=== PATIENT | male | born 1930 | race Caucasian/White ===

== ENCOUNTER → 2017-03-22 | Outpatient (CLI) | payer OTHER ==
[~2017-03-22] MED LIST: ASCO500 PO; ASPI325 PO; ASPI81CH; ATEN25 PO; CLOB.05TC TOP; CLOB.05TO TOP; CLOP75 PO; CRESTOR PO; Crestor20 MG; ELIQUIS5 MG PO; FISH1000 PO; FOLI400 PO; FURO20; FURO20 PO; Flonase 0.05% N16 GM; GABA300 PO; GLUCOSAMINE PO; LEVSOD100 PO; LEVSOD50 PO; LISI10 PO; LOSA25 PO; LOSA50 PO; NAPR500 PO; NITR.4SL SL; OXYACE5T PO; ROSU10TA PO; ROSU5 PO; SAW PALMETTA; SAW PALMETTA PO; SYNTHROID PO; Synthroid75 MCG
== END | disposition home or self-care (01) ==
LOC: LAB SHORT 11:18 → PLD 11:18
DX: D48.5 Neoplasm of uncertain behavior of skin (principal)
CPT/HCPCS: 88305

== ENCOUNTER → 2018-04-04 | Outpatient (CLI) | payer OTHER | END | disposition home or self-care (01) | LOC: LAB SHORT 14:32 → PLD 14:32 | DX: L57.0 Actinic keratosis (principal) | CPT/HCPCS: 88305 ==

== ENCOUNTER → 2018-10-03 | Outpatient (CLI) | payer OTHER | END | disposition home or self-care (01) | LOC: PLD 11:47 → LAB SHORT 11:47 | DX: D48.5 Neoplasm of uncertain behavior of skin (principal) | CPT/HCPCS: 88305 ==

== ENCOUNTER → 2019-09-28 | Outpatient (CLI) | payer OTHER | END | disposition home or self-care (01) | LOC: PLD 15:52 → LAB SHORT 15:52 | DX: D48.5 Neoplasm of uncertain behavior of skin (principal) | CPT/HCPCS: 88305 ==

== ENCOUNTER → 2019-10-17 | Outpatient (CLI) | payer OTHER | END | disposition home or self-care (01) | LOC: LAB SHORT 15:47 → PLD 15:47 | DX: C44.41 Basal cell carcinoma of skin of scalp and neck (principal) | CPT/HCPCS: 88305 ==

== ENCOUNTER 2019-12-07 09:04 | Day surgery (SDC) | payer OTHER ==
[~2019-12-07] VITALS: Ht 162.6 cm; Wt 82.0 kg
[2019-12-07] MEDS ORDERED: BUME1 (11:00)
[2019-12-07] MEDS ORDERED: GABA100 (11:02)
[2019-12-07] MEDS ORDERED: ZYRTEC10 M1 (11:04)
[2019-12-07] MEDS ORDERED: OMEP20ER (11:05)
[2019-12-07] MEDS ORDERED: SPIR25 (11:06)
--- NOTE | 2019-12-07 16:00 | NUR ---
PT AMBULATED IN ROOM. TOLERATED WELL. NO BLEEDING AT LEFT GROIN OR RIGHT REDAL.
--- NOTE | 2019-12-07 16:35 | NUR ---
PATIENT DRESSED FOR DISCHARGE. WRITTEN DISCHARGE INSTRUCTIONS GIVEN WITH VERBAL UNDERSTANDING. IV REMOVED WITH CATHETER INTACT AND 2X2 DRESSING WITH COBAN APPLIED.
--- NOTE | 2019-12-07 16:45 | NUR ---
DISCHARGED HOME VIA WHEEL CHAIR . FRIEND DRIVING.
== END 2019-12-07 16:45 | disposition home or self-care (01) ==
LOC: MHTC 09:04
DX: I70.211 Atherosclerosis of native arteries of extremities with intermittent claudication, right leg (principal); I11.0 Hypertensive heart disease with heart failure; I50.9 Heart failure, unspecified; E78.5 Hyperlipidemia, unspecified; E03.9 Hypothyroidism, unspecified; E66.3 Overweight; Z79.01 Long term (current) use of anticoagulants; Z79.899 Other long term (current) drug therapy; Z79.02 Long term (current) use of antithrombotics/antiplatelets; Z68.31 Body mass index [BMI] 31.0-31.9, adult
CPT/HCPCS: 37228; 75625; 75716; 75774; 85347; 99152; 99153; C1725; C1757; C1760; C1769; C1887; C1894; C9764; J1644; J2250; J3010; J7030; Q9967

== ENCOUNTER 2020-04-14 14:00 | Emergency (ER) | payer OTHER ==
[~2020-04-14] VITALS: Ht 162.6 cm; Wt 81.7 kg
[~2020-04-14 14:00] MED LIST changes: +BUME1; +GABA100; +OMEP20ER; +SPIR25; +ZYRTEC10 M1
[2020-04-14 14:36] LABS: BASOPHILS ABSOLUTE AUTO 0.02 K/mm3 (0.00-0.23); BASOPHILS PERCENT AUTO 0 % (0-2); EOSINOPHILS ABSOLUTE AUTO 0.12 K/mm3 (0.00-0.68); EOSINOPHILS PERCENT AUTO 1 % (0-6); Hematocrit 35.3 % (37.0-53.0); Hemoglobin 11.5 g/dL (13.5-17.5); IMMATURE GRAN ABSOLUTE AUTO 0.05 K/mm3 (0.00-0.10); IMMATURE GRAN PERCENT AUTO 1 % (0-1); LYMPHOCYTES ABSOLUTE AUTO 1.09 K/mm3 (0.84-5.20); LYMPHOCYTES PERCENT AUTO 11 % (21-46); MONOCYTES PERCENT AUTO 7 % (4-13); Mean Corpuscular HGB Conc 32.6 g/dL (31.5-36.5); Mean Corpuscular Volume 92 fL (80-100); Mean Platelet Volume 10.5 fL (9.1-12.4); NEUTROPHILS ABSOLUTE AUTO 7.54 K/mm3 (1.96-9.15); NEUTROPHILS PERCENT AUTO 79 % (41-73); Platelet Count 117 K/mm3 (150-400); RDW Coefficient Variation 13.9 % (11.7-14.2); RDW Standard Deviation 47.3 fL (35.1-46.3); Red Blood Cell Count 3.83 M/mm3 (4.30-5.90); White Blood Cell Count 9.52 K/mm3 (4.00-11.30)
[2020-04-14 15:24] LABS: Alanine Aminotransfer (ALT/SGP 32 U/L (12-78); Albumin, Blood 3.6 g/dL (3.4-5.0); Albumin/Globulin Ratio 1.2 (0.8-1.8); Alk Phos 81 U/L (50-136); Anion Gap 4 mmol/L (6-16); Aspartate Aminotrans (AST/SGOT 31 U/L (12-37); Bilirubin, Total 0.6 mg/dL (0.1-1.0); Blood Urea Nitrogen 18 mg/dL (8-24); Bun/Creatinine Ratio 15.4 (12.0-20.0); CO2, Blood 29 mmol/L (21-32); Calcium, Blood 8.8 mg/dL (8.5-10.1); Chloride, Blood 104 mmol/L (98-108); Creatinine, Blood 1.17 mg/dL (0.60-1.20); Glomerular Filtration Rate >60 (60-); Glucose, Blood 107 mg/dL (70-99); Potassium, Blood 4.1 mmol/L (3.5-5.5); Sodium, Blood 137 mmol/L (136-145); Total Protein, Blood 6.6 g/dL (6.4-8.2); Troponin I <0.015 ng/mL (0.000-0.040)
== END 2020-04-14 16:10 | disposition home or self-care (01) ==
LOC: ER 14:00
PROVIDERS: Physician Assistant
DX: R55 Syncope and collapse (principal); I48.91 Unspecified atrial fibrillation; Z95.1 Presence of aortocoronary bypass graft; Z79.01 Long term (current) use of anticoagulants; Z79.899 Other long term (current) drug therapy
CPT/HCPCS: 36415; 71046; 80053; 84484; 85025; 93005; 93010; 99284-25

== ENCOUNTER 2020-09-26 09:49 | Day surgery (SDC) | payer OTHER ==
[~2020-09-26] VITALS: Ht 162.6 cm; Wt 80.0 kg
[~2020-09-26 09:49] MED LIST changes: -SPIR25; +SPIR25 PO
--- NOTE | 2020-09-26 13:15 | NUR ---
PT UPDATED ON WAIT STATUS. PT RIDE/ FRIEND NOTIFIED OF LATER DEPARTURE. WE WILL CALL DORA VARNER [phone] WHEN PROCEDURE IS FINISHED.
--- NOTE | 2020-09-26 15:47 | NUR ---
ASSUMED CARE OF PATIENT, PATIENT ON MONITOR, AFIB NOTED, S/P DIAGNOSTIC PERIPHERAL ANGIOGRAM. ANGIOSEAL TO THE RFA AT 1520. SITE CLEAN AND DRY, NO HEMATOMA NOTED. VVS. NO PAIN NOTED FROM THE PATIENT.
--- NOTE | 2020-09-26 17:46 | NUR ---
1730 PATIENT ASSISTED TO SITTING POSITION ON THE SIDE OF THE BED AND DINNER TRAY SERVED. CALLED FOR RIDE TO BE HERE AT 1815 TO DISCHARGE PATIENT HOME. VVS.
--- NOTE | 2020-09-26 17:56 | NUR ---
PIV REMOVED AND PRESSURE DRESSING APPLIED. REVIEWED DISCHARGE INSTRUCTIONS WITH THE PATIENT WHILE HE WAS FINISHING HIS MEAL. QUESTIONS ANSWERED AND COPIES GIVEN TO THE PATIENT. PATIENT UP AND DRESSED AFTER RFA SITE CHECKED. DRESSING CDI. NO HEMATOMA AND NO BLEEDIN NOTED.
--- NOTE | 2020-09-26 18:10 | NUR ---
PATIENT DRESSED ADN ALL BELONGINGS GATHERED. TO THE RESTROOM, GAIT STEADY. DISCHARGE HOME VIA WHEELCHAIR AND INSTRUCTIONS, AND MASK TO DORA, FAMILY FRIEND.
== END 2020-09-26 22:43 | disposition home or self-care (01) ==
LOC: MHTC 09:49
DX: I70.213 Atherosclerosis of native arteries of extremities with intermittent claudication, bilateral legs (principal); I11.0 Hypertensive heart disease with heart failure; I50.9 Heart failure, unspecified; I25.10 Atherosclerotic heart disease of native coronary artery without angina pectoris; I48.91 Unspecified atrial fibrillation; E78.5 Hyperlipidemia, unspecified; Z79.01 Long term (current) use of anticoagulants
CPT/HCPCS: 36246; 75716; 75774; 76937; 99152; C1760; C1769; C1887; C1894; J2250; J3010; J7030; J7050; Q9967

== ENCOUNTER 2021-05-22 19:20 | Emergency (ER) | payer OTHER ==
[~2021-05-22] VITALS: Ht 162.6 cm; Wt 79.4 kg
[2021-05-22] MEDS ORDERED: FINA5 PO (20:23)
[2021-05-22] MEDS ORDERED: CEPH500 PO (21:46)
== END 2021-05-22 22:11 | disposition home or self-care (01) ==
LOC: ER 19:20
DX: S61.011A Laceration without foreign body of right thumb without damage to nail, initial encounter (principal); W45.8XXA Other foreign body or object entering through skin, initial encounter; Z79.899 Other long term (current) drug therapy; I48.91 Unspecified atrial fibrillation; Z21 Asymptomatic human immunodeficiency virus [HIV] infection status
CPT/HCPCS: 12002; 73140; 90471; 90714; 99283-25; A9270

== ENCOUNTER 2021-06-20 01:08 | Day surgery (SDC) | payer OTHER ==
[~2021-06-20 01:08] MED LIST changes: +CEPH500 PO; +FINA5 PO
== END 2021-06-20 23:00 | disposition home or self-care (01) ==
LOC: WOUND 01:08
DX: T81.33XA Disruption of traumatic injury wound repair, initial encounter (principal); I48.91 Unspecified atrial fibrillation; I25.10 Atherosclerotic heart disease of native coronary artery without angina pectoris; I10 Essential (primary) hypertension; I25.2 Old myocardial infarction; J45.909 Unspecified asthma, uncomplicated; E03.9 Hypothyroidism, unspecified; Z96.652 Presence of left artificial knee joint; Z95.1 Presence of aortocoronary bypass graft
CPT/HCPCS: G0463

== ENCOUNTER 2021-06-23 11:15 | Day surgery (SDC) | payer OTHER | END 2021-06-23 23:09 | disposition home or self-care (01) | LOC: WOUND 11:15 | DX: S61.011D Laceration without foreign body of right thumb without damage to nail, subsequent encounter (principal) | CPT/HCPCS: G0463 ==

== ENCOUNTER 2021-06-27 01:14 | Day surgery (SDC) | payer OTHER | END 2021-06-27 22:51 | disposition home or self-care (01) | LOC: WOUND 01:14 | DX: T81.33XA Disruption of traumatic injury wound repair, initial encounter (principal) | CPT/HCPCS: A9270; G0463 ==

== ENCOUNTER 2021-07-11 01:53 | Day surgery (SDC) | payer OTHER | END 2021-07-11 23:15 | disposition home or self-care (01) | LOC: WOUND 01:53 | DX: S61.011A Laceration without foreign body of right thumb without damage to nail, initial encounter (principal); I48.91 Unspecified atrial fibrillation; W31.2XXA Contact with powered woodworking and forming machines, initial encounter | CPT/HCPCS: G0463 ==

== ENCOUNTER 2021-07-25 05:21 | Day surgery (SDC) | payer OTHER | END 2021-07-25 23:08 | disposition home or self-care (01) | LOC: WOUND 05:21 | DX: T81.30XA Disruption of wound, unspecified, initial encounter (principal); S61.011D Laceration without foreign body of right thumb without damage to nail, subsequent encounter; X58.XXXD Exposure to other specified factors, subsequent encounter | CPT/HCPCS: G0463 ==

== ENCOUNTER 2021-08-22 01:20 | Day surgery (SDC) | payer OTHER | END 2021-08-22 23:05 | disposition home or self-care (01) | LOC: WOUND 01:20 | DX: S61.011D Laceration without foreign body of right thumb without damage to nail, subsequent encounter (principal); W27.0XXD Contact with workbench tool, subsequent encounter | CPT/HCPCS: G0463 ==

== ENCOUNTER → 2022-08-05 | Outpatient (CLI) | payer OTHER | END | disposition home or self-care (01) | LOC: PLD 14:45 → LAB SHORT 14:45 | DX: C44.212 Basal cell carcinoma of skin of right ear and external auricular canal (principal) | CPT/HCPCS: 88305 ==

== ENCOUNTER 2022-10-02 09:58 | Day surgery (SDC) | payer OTHER ==
[2022-10-02] VITALS (7 sets, daily range): BP systolic 134–166; BP diastolic 56–82
[~2022-10-02] VITALS: Ht 162.6 cm; Wt 76.9 kg
[~2022-10-02 09:58] MED LIST changes: +KETO.5OPSO LEFTEYE; +KLOR-CON M1010 MEQ PO; -LEVSOD100 PO; +LEVSOD112 PO; +METO25ER PO
--- NOTE | 2022-10-02 14:31 | NUR ---
ADMISSION: PT ARRIVED TO PCU 8 VIA BED FROM [facility]. PT POST PACEMAKER PLACEMENT. BP STABLE, HR PACED 60'S, AFEBRILE, SATS >98% ON ROOM AIR. RESPIRATIONS EVEN AND UNLABORED. PULSES STRONG AND EQUAL THROUGHOUT. PT WITH SINGLE LEAD PACEMAKER, PROGRAMMED 60 BMP DURING DAY, 5 0BMP AT NOC. PT DENIES PAIN. ORIENTED TO ROOM AND CALL LIGHT SYSTEM. EDUCATION PROVIDED ON L. ARM RESTRICTIONS. ORDERS FOR PACER INTERROGATION AT 0800 10/03/22. BED IN LOW, CALL LIGHT IN REACH, WILL CONTONIUE TO MONITOR.
--- NOTE | 2022-10-02 17:02 | NUR ---
SHIFT SUMMARY: NO ACUTE CHANGES SINCE ADMISSION. PT DENIES PAIN. VSS REMAIN STABLE. PT CURRENTLY IN BED SLEEPING. L.ARM SLING IN PLACE, WITH ICE PACK. BED IN LOW, CALL LIGHT IN REACH, WILL REPORT TO ONCOMING RN.
[2022-10-03 00:31] VITALS: BP 137/68
[2022-10-03 04:10] VITALS: BP 144/68
--- NOTE | 2022-10-03 06:01 | NUR ---
SHIFT SUMMARY PT S/P PACEMAKER PLACEMENT. PT HAS DONE WELL OVERNIGHT, HR STABLE ON TELE. SLING IN PLACE TO LEFT ARM. DRESSING TO LEFT CHEST WALL C/D/I. IV ANTIVBIOTICS INFUSED. PT A/OX4, MAKES NEEDS KNOWN. VITALS ARE STABLE. FIRE RISK ASSESSED THIS SHIFT, PT EDUCATED ON FIRE RISKS AND IGNITION SOURCES. PT DENIES HAVING IGNITION SOURCES.
[2022-10-03 07:26] VITALS: BP 126/72
--- NOTE | 2022-10-03 10:39 | NUR ---
DISCHARGE: PT D/C @1025 VIA WHEELCHAIR. EDUCATION AND DISCHARGE INSTRUCTIONS PROVIDED. ALL BELONINGS WITH PT.
== END 2022-10-03 11:03 | disposition home or self-care (01) ==
LOC: MHTC 09:58 → PCU 13:15 → MHTC 23:12
DX: I48.21 Permanent atrial fibrillation (principal); R53.83 Other fatigue; R06.09 Other forms of dyspnea; I11.0 Hypertensive heart disease with heart failure; I50.9 Heart failure, unspecified; I25.10 Atherosclerotic heart disease of native coronary artery without angina pectoris; E03.9 Hypothyroidism, unspecified; E78.5 Hyperlipidemia, unspecified; Z79.01 Long term (current) use of anticoagulants; Z79.890 Hormone replacement therapy; Z79.899 Other long term (current) drug therapy
CPT/HCPCS: 33207; 71045; 76937; 99152; 99153; A9270; C1781; C1786; C1894; C1898; J0690; J1644; J2250; J3010; J7030; J7040; J7050

== ENCOUNTER 2022-10-20 12:00 | Inpatient (IN) | payer OTHER ==
[~2022-10-20] VITALS: Ht 167.6 cm; Wt 69.9 kg
[2022-10-20 12:33] LABS: BASOPHILS ABSOLUTE AUTO 0.04 K/mm3 (0.00-0.23); BASOPHILS PERCENT AUTO 1 % (0-2); EOSINOPHILS ABSOLUTE AUTO 0.27 K/mm3 (0.00-0.68); EOSINOPHILS PERCENT AUTO 3 % (0-6); Hematocrit 42.4 % (37.0-53.0); Hemoglobin 13.7 g/dL (13.5-17.5); IMMATURE GRAN ABSOLUTE AUTO 0.05 K/mm3 (0.00-0.10); IMMATURE GRAN PERCENT AUTO 1 % (0-1); LYMPHOCYTES ABSOLUTE AUTO 2.57 K/mm3 (0.84-5.20); LYMPHOCYTES PERCENT AUTO 31 % (21-46); MONOCYTES ABSOLUTE AUTO 0.96 K/mm3 (0.16-1.47); MONOCYTES PERCENT AUTO 12 % (4-13); Mean Corpuscular HGB 28.9 pg (26.0-34.0); Mean Corpuscular HGB Conc 32.3 g/dL (31.5-36.5); Mean Corpuscular Volume 90 fL (80-100); Mean Platelet Volume 9.9 fL (9.1-12.4); NEUTROPHILS ABSOLUTE AUTO 4.31 K/mm3 (1.96-9.15); NEUTROPHILS PERCENT AUTO 53 % (41-73); Platelet Count 189 K/mm3 (150-400); RDW Coefficient Variation 13.5 % (11.7-14.2); RDW Standard Deviation 44.5 fL (35.1-46.3); Red Blood Cell Count 4.74 M/mm3 (4.30-5.90)
[2022-10-20 13:39] LABS: Source, Urine Voided
[2022-10-20 13:42] LABS: Albumin, Blood 3.9 g/dL (3.4-5.0); Bilirubin, Total 0.7 mg/dL (0.1-1.0); Bun/Creatinine Ratio 16.9 (12.0-20.0); Calcium, Blood 9.2 mg/dL (8.5-10.1); Creatinine, Blood 3.49 mg/dL (0.60-1.20); Globulin, Blood 3.8 g/dL (2.2-4.0); Potassium, Blood 4.8 mmol/L (3.5-5.5); Thyroid Stimulating Hormone 15.1 uIU/mL (0.360-4.800); Total Protein, Blood 7.7 g/dL (6.4-8.2)
[2022-10-20 13:46] LABS: Appearance, Urine Clear (Clear); Bilirubin, Urine Neg (Neg); Blood, Urine 2+ (Neg); Color, Urine Yellow (P-Yellow); Glucose Qualitative, Urine Neg (Neg); Ketones, Urine Neg (Neg); Leukocyte Esterase, Urine Neg (Neg); Nitrite, Urine Neg (Neg); Protein, Urine 2+ (Neg); Specific Gravity, Urine 1.015 (1.003-1.022); Urobilinogen, Urine NORM (Normal)
[2022-10-20 14:13] LABS: Bacteria Few /hpf; Squamous Epithelial Cells Rare /hpf (Few); White Blood Cells, Urine 0-2 /hpf (0-5)
[2022-10-20 15:05] LABS: Free Thyroxine 0.81 ng/dL (0.70-1.60)
[2022-10-20 15:07] LABS: Triiodothyronine, Free 1.49 pg/mL (2.18-3.98)
[2022-10-20] MEDS ORDERED: POTA10T (16:51)
[2022-10-20] MEDS ORDERED: Cetirizine HCl10 MG PO (16:52)
[2022-10-20] MEDS ORDERED: BUME1 (16:52)
[2022-10-20] MEDS ORDERED: OMEP20ER PO (16:53)
[2022-10-20 17:31] VITALS: BP 120/73
--- NOTE | 2022-10-20 18:58 | NUR ---
ADMIT PATIENT ARRIVED AT 1725. A&OX4, SLIGHTLY [place], SBA TRANSFER TO BED. PATIENT IS ABLE TO VOID. 2 NURSE SKIN CHECK COMPLETED WITH BRIDGER ARCE. PT DENIES ANY PAIN. NS CURRENTLY RUNNING AT 100ML/HR. DENIES HEADACHE, CHEST PAIN/PRESSURE, DIZZINESS, OR SOB. PACEMAKER PLACED RECENTLY ON 10/02. CURRENTLY EATING DINNER. CALL LIGHT WITHIN REACH.
[2022-10-20 19:41] VITALS: BP 124/71
[2022-10-21 02:30] VITALS: BP 101/64
[2022-10-21 05:47] LABS: BASOPHILS ABSOLUTE AUTO 0.04 K/mm3 (0.00-0.23); BASOPHILS PERCENT AUTO 1 % (0-2); EOSINOPHILS ABSOLUTE AUTO 0.26 K/mm3 (0.00-0.68); EOSINOPHILS PERCENT AUTO 4 % (0-6); Hematocrit 38.3 % (37.0-53.0); Hemoglobin 12.4 g/dL (13.5-17.5); IMMATURE GRAN ABSOLUTE AUTO 0.03 K/mm3 (0.00-0.10); IMMATURE GRAN PERCENT AUTO 0 % (0-1); LYMPHOCYTES ABSOLUTE AUTO 1.92 K/mm3 (0.84-5.20); LYMPHOCYTES PERCENT AUTO 26 % (21-46); MONOCYTES ABSOLUTE AUTO 0.79 K/mm3 (0.16-1.47); MONOCYTES PERCENT AUTO 11 % (4-13); Mean Corpuscular HGB Conc 32.4 g/dL (31.5-36.5); Mean Corpuscular Volume 90 fL (80-100); Mean Platelet Volume 10.1 fL (9.1-12.4); NEUTROPHILS ABSOLUTE AUTO 4.29 K/mm3 (1.96-9.15); NEUTROPHILS PERCENT AUTO 59 % (41-73); Platelet Count 165 K/mm3 (150-400); RDW Coefficient Variation 13.5 % (11.7-14.2); RDW Standard Deviation 44.2 fL (35.1-46.3); Red Blood Cell Count 4.28 M/mm3 (4.30-5.90); White Blood Cell Count 7.33 K/mm3 (4.00-11.30)
[2022-10-21 06:03] LABS: Bun/Creatinine Ratio 18.9 (12.0-20.0); Creatinine, Blood 2.86 mg/dL (0.60-1.20); Potassium, Blood 4.4 mmol/L (3.5-5.5)
--- NOTE | 2022-10-21 06:24 | NUR ---
SHIFT SUMMARY PT PLEASANT & COOPERATIVE T/O SHIFT. USING URINAL INDEPENDENTLY AT BEDSIDE. DENIES DIZZINESS. NS RUNNING 100 ML/HR. PT DENIED PAIN T/O SHIFT. VS REVIEWED. CALL LIGHT IN REACH. DENIES OTHER NEEDS AT THIS TIME. VOIDING WELL. NO OTHER ACUTE CHANGES IN ASSESSMENT AT THIS TIME.
[2022-10-21 07:16] VITALS: BP 98/68
--- NOTE | 2022-10-21 10:58 | NUR ---
DRESSING APPLIED APPLIED ALLEVYN DRESSING TO PT'S SACRUM AREA. REDNESS NOTED ON BUTTOCKS. EDUCATED PT ON POSITION CHANGES T/O DAY. WILL CONTINUE TO MONITOR REDDENED AREA, DRESSING, AND POSITION CHANGES T/O SHIFT AND REPORT TO THE ONCOMING RN.
[2022-10-21 15:31] VITALS: BP 117/65
--- NOTE | 2022-10-21 18:29 | NUR ---
SHIFT SUMMARY PT IS A&OX4, PLEASANT, AND COOPERATIVE. VOIDS INDEPENDENTLY USING A URINAL AND REPORTS LAST BOWEL MOVEMENT YESTERDAY. NS IS INFUSING AT 100 MLS/HR. DENIES PAIN AND VSS. REDDISH BUTTOCKS AREA UNCHANGED.CALL LIGHT IS WITHIN REACH AND BED IS AT THE LOWEST POSITION. WILL REPORT TO THE ONCOMING RN.
[2022-10-21 19:38] VITALS: BP 123/73
[2022-10-22 02:34] VITALS: BP 145/71
--- NOTE | 2022-10-22 05:36 | NUR ---
PATIENT UP LOTS TO USE BATHROOM OVERNIGHT. ALWAYS WENT BACK TO SLEEP RIGHT AFTER. NO COMPLAINTS OR INDICATIONS OF PAIN OR DISCOMFORT OVERNIGHT. NO DIFFICULTY WITH CONTINUOUS IVF WHILE OOB WITH STAFF. HOPING TO GO HOME LATER TODAY
[2022-10-22 05:51] LABS: BASOPHILS ABSOLUTE AUTO 0.05 K/mm3 (0.00-0.23); BASOPHILS PERCENT AUTO 1 % (0-2); EOSINOPHILS ABSOLUTE AUTO 0.28 K/mm3 (0.00-0.68); EOSINOPHILS PERCENT AUTO 4 % (0-6); Hematocrit 38.6 % (37.0-53.0); Hemoglobin 12.3 g/dL (13.5-17.5); IMMATURE GRAN ABSOLUTE AUTO 0.03 K/mm3 (0.00-0.10); IMMATURE GRAN PERCENT AUTO 0 % (0-1); LYMPHOCYTES ABSOLUTE AUTO 1.94 K/mm3 (0.84-5.20); LYMPHOCYTES PERCENT AUTO 28 % (21-46); MONOCYTES ABSOLUTE AUTO 0.78 K/mm3 (0.16-1.47); MONOCYTES PERCENT AUTO 11 % (4-13); Mean Corpuscular HGB 29.1 pg (26.0-34.0); Mean Corpuscular HGB Conc 31.9 g/dL (31.5-36.5); Mean Corpuscular Volume 91 fL (80-100); Mean Platelet Volume 9.9 fL (9.1-12.4); NEUTROPHILS ABSOLUTE AUTO 3.87 K/mm3 (1.96-9.15); NEUTROPHILS PERCENT AUTO 56 % (41-73); Platelet Count 137 K/mm3 (150-400); RDW Coefficient Variation 13.6 % (11.7-14.2); RDW Standard Deviation 45.4 fL (35.1-46.3); Red Blood Cell Count 4.23 M/mm3 (4.30-5.90); White Blood Cell Count 6.95 K/mm3 (4.00-11.30)
[2022-10-22 06:05] LABS: Bun/Creatinine Ratio 18.1 (12.0-20.0); Calcium, Blood 8.8 mg/dL (8.5-10.1); Creatinine, Blood 2.32 mg/dL (0.60-1.20); Potassium, Blood 4.5 mmol/L (3.5-5.5)
[2022-10-22 07:09] VITALS: BP 118/58
--- NOTE | 2022-10-22 12:30 | NUR ---
DISCHARGE PLAN MADE ROUNDS AND PT IS TO STAY ONE MORE NIGHT.
[2022-10-22 15:55] VITALS: BP 116/70
--- NOTE | 2022-10-22 17:25 | NUR ---
SHIFT SUMMARY PT IS A&OX4, PLEASANT, AND COOPERATIVE. VOIDS INDEPENDENTLY, REPORTS BOWEL MOVEMENT TODAY, DENIES PAIN, AND VSS. NS INFUSING AT 100 MLS/HR. REDDISH AREA BETWEEN HIS BUTTOCKS IS UNCHANGED. PT WORKED WITH PHYSICAL THERAPY TODAY AND TOLERATED IT WELL. PLAN TO DISCHARGE TOMORROW. CALL LIGHT IS WITHIN REACH AND BED IS AT THE LOWEST POSITION. WILL REPORT TO THE ONCOMING RN.
[2022-10-22 19:22] VITALS: BP 125/62
[2022-10-23 04:55] VITALS: BP 113/80
[2022-10-23 05:41] LABS: BASOPHILS ABSOLUTE AUTO 0.03 K/mm3 (0.00-0.23); BASOPHILS PERCENT AUTO 1 % (0-2); EOSINOPHILS ABSOLUTE AUTO 0.25 K/mm3 (0.00-0.68); EOSINOPHILS PERCENT AUTO 4 % (0-6); Hematocrit 36.2 % (37.0-53.0); Hemoglobin 11.6 g/dL (13.5-17.5); IMMATURE GRAN ABSOLUTE AUTO 0.03 K/mm3 (0.00-0.10); IMMATURE GRAN PERCENT AUTO 1 % (0-1); LYMPHOCYTES ABSOLUTE AUTO 1.53 K/mm3 (0.84-5.20); LYMPHOCYTES PERCENT AUTO 25 % (21-46); MONOCYTES ABSOLUTE AUTO 0.61 K/mm3 (0.16-1.47); MONOCYTES PERCENT AUTO 10 % (4-13); Mean Corpuscular HGB 29.1 pg (26.0-34.0); Mean Corpuscular Volume 91 fL (80-100); Mean Platelet Volume 10.2 fL (9.1-12.4); NEUTROPHILS ABSOLUTE AUTO 3.67 K/mm3 (1.96-9.15); NEUTROPHILS PERCENT AUTO 60 % (41-73); Platelet Count 127 K/mm3 (150-400); RDW Coefficient Variation 13.4 % (11.7-14.2); RDW Standard Deviation 44.5 fL (35.1-46.3); Red Blood Cell Count 3.99 M/mm3 (4.30-5.90); White Blood Cell Count 6.12 K/mm3 (4.00-11.30)
[2022-10-23 06:04] LABS: Bun/Creatinine Ratio 16.9 (12.0-20.0); Calcium, Blood 8.9 mg/dL (8.5-10.1); Creatinine, Blood 1.77 mg/dL (0.60-1.20); Potassium, Blood 4.1 mmol/L (3.5-5.5)
--- NOTE | 2022-10-23 06:10 | NUR ---
SHIFT SUMMARY NO EVENTS OVERNIGHT. PT SLEPT WITH NO COMPLAINTS. Q1H FIRE SAFETY CHECKS COMPLETED WITH NO IGNITION SOURCES FOUND
[2022-10-23 08:01] VITALS: BP 145/72
[2022-10-23] MEDS ORDERED: ACET325 PO (11:16)
--- NOTE | 2022-10-23 14:05 | NUR ---
DISCHARGE SUMMARY: PT DISCHARGED HOME. EDUCATED PT ON DISCHARGE INSTRUCTIONS, MEDICATIONS, EDUCATION. PT VU. ASSISTED PT WITH PACKING UP BELONGINGS. PT FRIEND PICKED HIM UP AND EDUCATED FRIEND ON MEDICATIONS PER PT REQUEST. PT ESCORTED TO POV VIA WHEELCHAIR WITH FRIEND.
== END 2022-10-23 13:11 | disposition home or self-care (01) | DRG 683 ==
LOC: ER 12:00 → MEDS 12:01 → ENPENDDIS 10-23 10:34 → MEDS 10-23 13:11
PROVIDERS: Emergency Medicine; ADMIT Internal Medicine
DX: N17.9 Acute kidney failure, unspecified (principal); I13.0 Hypertensive heart and chronic kidney disease with heart failure and stage 1 through stage 4 chronic kidney disease, or unspecified chronic kidney disease; I50.32 Chronic diastolic (congestive) heart failure; E03.9 Hypothyroidism, unspecified; I48.91 Unspecified atrial fibrillation; Z66 Do not resuscitate; N18.30 Chronic kidney disease, stage 3 unspecified; I25.10 Atherosclerotic heart disease of native coronary artery without angina pectoris; I73.9 Peripheral vascular disease, unspecified; E78.5 Hyperlipidemia, unspecified; G62.9 Polyneuropathy, unspecified; I49.5 Sick sinus syndrome; Z96.652 Presence of left artificial knee joint; Z95.0 Presence of cardiac pacemaker; Z79.899 Other long term (current) drug therapy; Z79.01 Long term (current) use of anticoagulants; Z79.890 Hormone replacement therapy; Z79.2 Long term (current) use of antibiotics; Z87.39 Personal history of other diseases of the musculoskeletal system and connective tissue; Z98.890 Other specified postprocedural states
CPT/HCPCS: 36415; 71045; 76770; 80048; 80053; 81001; 84439; 84443; 84481; 84484; 84550; 85025; 93005; 93010; 96360; 97161; 97530; 99285-25; A9270; G0378; J7030